=== PATIENT | male | born 1940 | race Caucasian/White ===

== ENCOUNTER → 2017-01-06 | Outpatient (CLI) | payer OTHER ==
[2017-01-06 17:26] LABS: BASOPHILS # (AUTO) 0.01 10*3/UL; BASOPHILS % (AUTO) 0.1 % (0-1); EOSINOPHILS # (AUTO) 0.34 10*3/UL; EOSINOPHILS % (AUTO) 5.1 % (0-8); HEMATOCRIT 44.7 % (42.0-52.0); HEMOGLOBIN 14.6 g/dL (14.0-18.0); MEAN CORPUSCULAR HEMOGLOBIN 31.3 PG (27-31); MEAN CORPUSCULAR HGB CONC 32.7 g/dL (33-37); MEAN CORPUSCULAR VOLUME 95.9 FL (80-90); MEAN PLATELET VOLUME 10.4 FL (7.4-12.2); MONOCYTES # (AUTO) 0.64 10*3/UL (0.3-0.8); MONOCYTES % (AUTO) 9.5 % (5-15); NEUTROPHILS # (AUTO) 5.02 10*3/UL; NEUTROPHILS % (AUTO) 74.8 % (50-80); RED BLOOD COUNT 4.66 10^6/uL (4.70-6.10)
[2017-01-06 17:29] LABS: PLATELET MORPHOLOGY COMMENT NORMAL MORPHOLOGY (NORM); RBC MORPHOLOGY COMMENT NORMAL MORPHOLOGY (NORM); WBC MORPHOLOGY COMMENT NORMAL MORPHOLOGY (NORM)
[2017-01-06 17:35] LABS: CALCIUM 9.3 mg/dL (8.7-10.7); SERUM ALBUMIN 3.9 g/dL (3.5-4.8)
[2017-01-08 10:10] LABS: PSATOTAL 83.6 ng/mL (<=6.5)
[2017-01-09 13:28] LABS: FREE PSA/PSA RATIO SEE COMMENTS ratio (())
== END ==
LOC: MOB LAB 15:23
PROVIDERS: ATTEND Internal Medicine
DX: J44.9 Chronic obstructive pulmonary disease, unspecified (principal); D53.9 Nutritional anemia, unspecified; R64 Cachexia; R97.20 Elevated prostate specific antigen [PSA]
CPT/HCPCS: 36415; 80053; 82607; 84153; 84154; 84443; 85025; 99214; G0463; J3420

== ENCOUNTER 2017-11-18 09:56 | Inpatient (IN) ==
[2017-11-18] MEDS ORDERED: KETOROLAC 15 MG/1 ML VIAL IVP ONE (10:05)
[2017-11-18] MEDS ORDERED: IPRATROPIUM/ALBUTEROL SULFATE 3 ML NEB NEB ONE (10:05)
[2017-11-18] MEDS ORDERED: DEXAMETHASONE PF 10 MG/1 ML VIAL IVP ONE (10:05)
[2017-11-18] MEDS ORDERED: ONDANSETRON 4 MG/2 ML VIAL IVP ONE (10:05)
[2017-11-18] MEDS: Sodium Chloride 0.9% 1,000 ML PRIMARY IV ONE ×2 (10:09→14:07)
--- NOTE | 2017-11-18 10:12 | PDOC ---
Dyspnea HPI - General Chief Complaint: Respiratory Complaint Stated Complaint: TROUBLE BREATHING Date Seen by Provider: 11/18/17 Time Seen by Provider: 10:00 Source: POSITIVE: Patient, EMS Exam Limitations: POSITIVE: No limitations Treatment Prior to Arrival: REPORTS: Oxygen, Albuterol Neb Treatment Nurse's Notes Reviewed & Considered: Yes - History of Present Illness Initial Comments: This is a 77-year-old, well-developed, cachectic, male, complaining of shortness of breath. Patient called for EMS this morning with shortness of breath and difficulty breathing. EMS arrived and found his oxygenation to be 78 -80% on his baseline 3 L oxygen. He received albuterol and his oxygenation began to improve into the upper 80s and low 90s. With transfer from bed to [facility], his oxygen saturation dropped instantaneously into the low 80s. Patient states he began to develop symptoms 3 days ago with cough, shortness of breath, increased secretions, and tactile fevers. Patient denies nausea vomiting or diarrhea, no headache, no sore throat, no hematuria or dysuria. Body Location Affected: REPORTS: Chest Timing: REPORTS: Abrupt, Getting Worse Duration: >24 hours Severity: Severe Quality: REPORTS: "Pain" Initiating Event: REPORTS: Upper Respiratory Illness Context: DENIES: Sleep, Rest, Emotional Upset, Activity, Exertion, Other Exacerbated By: REPORTS: Exertion, Laying Flat, Coughing Associated Symptoms: REPORTS: Fever, Chills, Chest Discomfort, Chest Heaviness, Chest Tightness, Productive Cough, Anxiety Similar Symptoms Previously: Yes Recently seen/treated/hospitalized: No Any Prior Injuries Related to Current Complaint?: No - Patient Home Medications Home Medications: Home Medications Albuterol Sulfate [Ventolin Hfa] 1 - 2 puff INH Q4H #4 puff 05/17/16 Umeclidinium [place] [Incruse Ellipta] 62.5 mcg INH QD #1 inhaler 03/04/17 fluticasone 200 mcg-vilanterol 25 mcg/dose powder for inhalation 1 inh INH QDAY #28 ea 08/21/17 Cyanocobalamin (Vitamin B-12) [B-12 Compliance] 1,000 mcg IM MONTHLY 11/18/17 O2 3 l INH DAILY 11/18/17 - Patient Allergies Allergies/Adverse Reactions: Allergies 3 Allergy/AdvReac Type Severity Reaction Status Date / Time codeine Allergy Intermediate RASH Verified 11/18/17 12:40 nickel [Nickel] Allergy Mild RASH Verified 11/18/17 12:40 Past Medical History - heen HEENT History: Denies History Cardiovascular History: Denies History Respiratory History: COPD, Emphysema, Home Oxygen Use Additional Respiratory History: SPONTANEOUS PNEUMOTHORAX 01/2015 WITH CHEST TUBE PLACEMENT. HAS HAD 3 SPONTANEOUS PNEUMOS Gastrointestinal History: Denies History Genitourinary History: Denies History Endocrine History: Denies History Musculoskeletal History: Denies History Prosthesis or Implant: No Neurological History: Denies History Blood Disorders: Denies History Psychiatric History: Anxiety Disorders History of Sexually Transmitted Diseases: No Cancer History: Lung History of MDRO: No History of Other Communicable Diseases: No Alcohol Use: None In the Past 12 Months, Have Used or Abuse Any Substance: None Previous Surgical History: Yes Type / Date of Surgery: APPY, CHEST TUBE PLACEMENT Anesthesia Reactions: No Malignant Hyperthermia: No Significant Family History: No pertinent family hx ROS - Limitations ROS Limitations: No Limitations Constitution: REPORTS: Chills, Fever Cardiovascular: REPORTS: Chest Pain Respiratory: REPORTS: Cough Productive, Hurts To Breathe, Shortness Of Breath, Wheezing Neurological: REPORTS: Denies Neuro Symptoms Gastrointestinal: REPORTS: Denies GI Symptoms Endocrine: REPORTS: Denies Symptoms Musculoskeletal: REPORTS: Denies MS Symptoms Genitourinary: REPORTS: Denies Symptoms Eyes: REPORTS: Denies Symptoms ENT: REPORTS: Denies Symptoms Skin: REPORTS: Denies Skin Symptoms Lympathic: REPORTS: Denies Lympathic Symptoms Immunologic: POSITIVE: Denies Symptoms Psychiatric: POSITIVE: Denies Psych Symptoms Dyspnea Physical Exam - General Appearance General Appearance: REPORTS: Alert, Cooperative, No Evidence of Trauma, Severe Distress - HEENT HEENT: POSITIVE: Head Inspection Nml, Eyes Inspection Nml, Ears Inspection Nml, Nose Inspection Nml, Oral/Dental Inspect. Nml, Pharynx Inspect. Nml, PERRL, EOMI - Neck Neck: REPORTS: Normal Inspection - Respiratory Respiratory: REPORTS: Respiratory Distress, Fatigue, Wheezes, Rhonchi, Prolonged Expirations, Accessory Muscle Use, Retractions, Decreased Air Movement , Speaks Broken Sentences - Cardiovascular Cardiovascular: REPORTS: Heart Sounds Normal, Strong Pulses, No Murmur, No Gallop, No Friction Rub, No JVD, Tachycardia Peripheral Pulses: Radial (L): 4+ - Abdomen Abdomen: Soft: (All Quadrants), Normal Bowel Sounds: (All Quadrants), Denies Tenderness: (All Quadrants), No Splenomegaly: (All Quadrants), No Hepatomegaly: (All Quadrants), No Guarding: (All Quadrants), No Rebound: (All Quadrants), No Palpable Pulse: (All Quadrants), No Palpabale Mass: (All Quadrants), No Distention: (All Quadrants), No Rigidity: (All Quadrants) - Skin Skin: REPORTS: Intact, Normal For Race, Warm, Dry, No Rash - Extremities Extremity: Non-Tender: (All Extremities), Normal ROM: (All Extremities), Normal Inspection: (All Extremities), Pelvis Stable: (All Extremities) - Neurological / Psychological Neurological: POSITIVE: Oriented X3, automatic print developer Normal As Tested, Motor Normal, Sensation Normal, 5, 6 Dyspnea Progress - Results Reviewed by me Xrays/CTs/US Reviewed by me: Yes Discussed with Radiologist: No Lab Results Reviewed by Me: Yes CBC and BMP: 11/18/17 10:10 11/18/17 10:10 EKG Interpreted/Reviewed By Me:: Yes (Tachycaridia, sinus) EKG Interpretation:: POSITIVE: Abnormal EKG - Patient's Progress Pain Medication Addressed: POSITIVE: Yes Re-Examine Time: 11:22 Status: POSITIVE: Improved MDM / ED Course: Patient was examined, an IV started, blood drawn and sent to the laboratory for studies, EKG and radiographic examinations were obtained. Findings: CBC shows a normal white count. CMP shows potassium of 3.4. Influenza is negative. BNP is elevated at 1400. Chest x-ray, per my interpretation, shows a right upper and middle lobe pneumonia. D-dimer is elevated at 2.24. CT scan shows no PE present, there is noted to be a right upper and middle lobe pneumonia. Assessment: #1 right upper and middle lobe pneumonia. #2 hypoxia. Plan: IV Rocephin and azithromycin are administered here in the emergency room. Patient is being admitted by the hospitalist. Air Movement: POSITIVE: Poor Quality Measure Initiative: CP/AMI: POSITIVE: EKG Quality Measure Initiative: CAP: POSITIVE: Antibiotic(s), CXR or CT - Consult Consult (If Yes, Name of Consulting MD & Time Called): Yes (Dr. Lilly 1120hrs) Consulting MD will see pt:: POSITIVE: [facility] Admit Counseled: POSITIVE: Patient, RE: Lab Results, RE: Radiology Results, RE: DX, RE : Need for F/U Patient Care Time - Estimated PCT Patient Care Time (In Minutes): 30 Vital Signs - Recent Vital Signs Vital Signs: Vital Signs (Last 8 hours) Temp Pulse Pulse Resp BP Pulse Ox 11/18/17 10:56 118 H 24 100 11/18/17 10:55 114 H 26 H 90 11/18/17 10:45 98.1 F 120 H 24 122/94 89 11/18/17 10:32 107 H 18 92 11/18/17 10:31 103 H 18 92 - VS Reviewed Vital Signs Reviewed: Yes Discharge Clinical Impression: Pneumonia Discharge Disposition: Admit to Inpatient Condition: Stable Date Decision to Admit to Inpatient: 11/18/17 Time Decision to Admit to Inpatient: 11:20
[2017-11-18 10:14] LABS: VENOUS PH 7.37 (7.32-7.42)
--- NOTE | 2017-11-18 10:25 | EKG ---
[address] [address] Measurements Intervals [place] Rate: 101 P: 95 AL: 127 QRS: 82 QRSD: 78 T: 73 QT: 338 QTc: 396 Interpretive Statements SINUS TACHYCARDIA POSSIBLE LEFT ATRIAL ENLARGEMENT ABNORMAL RHYTHM ECG Compared to ECG 06/04/2015 09:36:06 Sinus rhythm no longer present Electronically Signed On 11-18-17 17:10:04 [facility] by Hernán Fay [id number]
[2017-11-18 10:29] LABS: BASOPHILS # (AUTO) 0.01 10*3/UL; BASOPHILS % (AUTO) 0.1 % (0-1); EOSINOPHILS # (AUTO) 0.12 10*3/UL; EOSINOPHILS % (AUTO) 1.3 % (0-8); Hematocrit [HCT] 41.9 % (42.0-52.0); LYMPHOCYTES # (AUTO) 1.14 10*3/uL; MEAN CORPUSCULAR HEMOGLOBIN 31.3 PG (27-31); MEAN CORPUSCULAR HGB CONC 33.4 g/dL (33-37); MEAN CORPUSCULAR VOLUME 93.5 FL (80-90); MEAN PLATELET VOLUME 10.8 FL (7.4-12.2); MONOCYTES # (AUTO) 0.74 10*3/UL (0.3-0.8); MONOCYTES % (AUTO) 7.8 % (5-15); NEUTROPHILS # (AUTO) 7.44 10*3/UL; NEUTROPHILS % (AUTO) 78.6 % (50-80); RED BLOOD COUNT 4.48 10^6/uL (4.70-6.10)
[2017-11-18 10:40] LABS: BLOOD UREA NITROGEN 21 mg/dL (7-22); SERUM ALBUMIN 3.7 g/dL (3.5-4.8)
[2017-11-18 10:42] LABS: PLATELET MORPHOLOGY COMMENT NORMAL MORPHOLOGY (NORM); RBC MORPHOLOGY COMMENT NORMAL MORPHOLOGY (NORM); WBC MORPHOLOGY COMMENT NORMAL MORPHOLOGY (NORM)
[2017-11-18] MEDS ORDERED: ALBUTEROL SULFATE 5 MG/ML-20 ML BOTTLE NEB ONE (10:46)
[2017-11-18] MEDS ORDERED: SODIUM CL 0.9% FOR INH 3 ML NEB NEB ONE ×2 (10:53→10:57)
[2017-11-18] MEDS ORDERED: FUROSEMIDE 10 MG/1 ML - 4 ML IVP ONE (11:18)
[2017-11-18] MEDS ORDERED: cefTRIAXone Inj 2 GM in Sodium Chloride 0.9% 100 ML IV ONE (11:18)
--- NOTE | 2017-11-18 12:19 | DI ---
CT CTA Chest Non-Coronary [facility],11/18/2017 10:40 AM: Clinical History: Shortness of breath with elevated d-dimer. Previous Exam: September 11, 2015 Findings: Multiple helically acquired CT images are obtained through the chest following intravenous administra tion of contrast, and demonstrate a small right pleural effusion. There is airspace disease within th e right upper lobe and within the right lower lobe. This was seen on the prior exam as well to a less er degree. There are diffuse emphysematous changes noted bilaterally. The pulmonary arteries demonstrate no evidence of filling defect or truncation. Multiple coronary art radha calcifications are seen. The upper abdomen is unremarkable. There are a few hypodensities noted within the liver not well evaluated on this exam. These are not w ell evaluated on this exam. Impression: 1. No evidence of pulmonary embolism. 2. Multifocal pneumonia. 3. Diffuse COPD. 4. Hepatic hypodensities. These were also seen on the prior exam, but are not well evaluated. Conside r [address] for further evaluation.
--- NOTE | 2017-11-18 12:19 | DI ---
XR CXR 2VW PA/LAT,11/18/2017 10:05 AM: Clinical History: Shortness of breath and cough. Previous Exam: None at this facility. Findings: PA and lateral views of the chest are obtained, and demonstrate diffuse increased lung volumes bilate rally. There is blunting of the right costophrenic angle. There is airspace disease involving the right upper lobe and within the right lower lobe. There is a very small right pleural effusion. The cardiomediastinum and bony thorax are unremarkable. Impression: Right upper lobe and right lower lobe pneumonia.
[2017-11-18] MEDS ORDERED: HEPARIN 5000 UNIT/1 ML SUBCUT SCH (12:39)
[2017-11-18] MEDS ORDERED: ACETAMINOPHEN 500 MG TABLET PO PRN ×2 (12:39→15:23)
[2017-11-18] MEDS ORDERED: LIDOCAINE W/ SODIUM BICARB 0.5 ML SYR SUBD PRN ×3 (12:39→19:30)
[2017-11-18] MEDS ORDERED: ONDANSETRON 4 MG/2 ML VIAL IVP PRN ×3 (12:39→19:30)
[2017-11-18] MEDS ORDERED: NORMAL SALINE 10 ML SYRINGE FLUSH IVP PRN ×3 (12:39→19:30)
[2017-11-18] MEDS ORDERED: ALBUTEROL SULFATE 2.5 MG/3 ML NEB PRN ×2 (12:39→15:23)
[2017-11-18] MEDS ORDERED: IPRATROPIUM/ALBUTEROL SULFATE 3 ML NEB NEB SCH ×2 (15:00→19:00)
--- NOTE | 2017-11-18 15:10 | EKG ---
[address] [place] [address] Measurements Intervals [place] Rate: 154 P: [place]: 0 QRS: 84 QRSD: 106 T: 141 QT: 304 QTc: 391 Interpretive Statements ATRIAL FLUTTER/TACHYCARDIA WITH RAPID VENTRICULAR RESPONSE ST DEPRESSION, CONSIDER SUBENDOCARDIAL INJURY Compared to ECG 11/18/2017 10:27:33 ST (T wave) deviation now present Sinus tachycardia no longer present Electronically Signed On 11-18-17 17:08:07 [facility] by Hernán Fay [id number]
[2017-11-18] MEDS ORDERED: DILTIAZEM 5 MG/ML - 5 ML IV ONE (15:23)
[2017-11-18] MEDS ORDERED: Diltiazem Drip 125 MG in Sodium Chloride 0.9% 100 ML IV SCH (15:30)
[2017-11-18] MEDS ORDERED: LIDOCAINE HCL 2 % 10 ML JELLY URO-JECT TOPICAL PRN ×2 (16:05→19:30)
--- NOTE | 2017-11-18 16:29 | PDOC ---
HPI - History of Present Illness Date of Service: 11/18/17 Time of Service: 16:20 Chief Complaint: Shortness of breath and cough History of Present Illness: This is a very pleasant 77-year-old male who has COPD, amongst other medical issues. He has been losing a significant amount of weight, upwards of 25 pounds in the last 6 months, and he noticed this morning that his oxygen saturation was 70% at home. He told his to call the ambulance for evaluation. He felt that he had had shortness of breath and cough. He was afebrile here, but was intermittently hypotensive and tachycardic with atrial flutter with a rapid ventricular response and also was found to have a pneumonia with chest x-ray and CT scan of the chest. He didn't try anything before coming in for evaluation is just been feeling much more week he states. He notes that when he walks to his couch to sit down he actually at one point passed out and fell face forward and do his couch. He is on oxygen, 3 L at home. He quit smoking over 3 and appears ago. His vaccine status is not known. Given his significant weight loss, I did do a PSA which is elevated at 66. He states he's had negative colonoscopies in the past. Fluids and antibiotics haven't helped the patient to feel a little better and his oxygen on place has also helped him feel better here today. Past Medical History Medical History: 1. COPD/emphysema with a 3-4 L oxygen requirement. 2. History of pneumothorax and required a chest tube. 3. Loss of weight. 4. Vitamin B12 deficiency Surgical History: History of previous appendectomy Family History: Reviewed an Not Pertinent Pertinent Family History: No Family history of heart disease. Past Social History: . Has several children unfortunately the patient states that a couple have asked she passed on. He quit smoking over 3-1/2 years ago, no alcohol. Lives with his here in [place]. Tobacco Use: Former Smoker In the Past 12 Months, Have Used or Abuse Any of the Following Substance: None Alcohol Use: None Medication / Allergies Home Medications: Home Medications 3 Medication Instructions Recorded Confirmed Type Albuterol Sulfate [Ventolin Hfa] 1 - 2 puff INH Q4H #4 puff 05/17/16 11/18/17 Rx Umeclidinium [place] [Incruse 62.5 mcg INH QD #1 inhaler 03/04/17 11/18/17 Rx Ellipta] fluticasone 200 mcg-vilanterol 25 1 inh INH QDAY #28 ea 08/21/17 11/18/17 Rx mcg/dose powder for inhalation O2 3 l INH DAILY 11/18/17 11/18/17 History RX: Cyanocobalamin (Vitamin B-12) 1,000 mcg IM MONTHLY 11/18/17 11/18/17 History [B-12 Compliance] Allergies/Adverse Reactions: Allergies 3 Allergy/AdvReac Type Severity Reaction Status Date / Time codeine Allergy Intermediate RASH Verified 11/18/17 12:40 nickel [Nickel] Allergy Mild RASH Verified 11/18/17 12:40 Review of Systems - Review of Systems All Systems: Reviewed & No Additional Complaints Except as Stated (I did a 12 point review systems and is negative other than that discussed in history present illness and that noted below.) - Constitutional Constitutional: REPORTS: General Health Poor, Weight Loss, Weakness - Respiratory Respiratory: REPORTS: Cough - Gastrointestinal Gastrointestinal / Abdominal: REPORTS: Other (Does get choking sensation in his lower neck/upper chest sometimes with solids.) Exam - Vitals Vital Signs: Vital Signs Temperature 98.8 F Temperature Source Temporal Artery Scan Pulse Rate [Apical] 112 Pulse Rate 149 Respiratory Rate 20 Blood Pressure [Right Arm] 94/68 Blood Pressure 93/63 Pulse Ox 94 Oxygen Flow Rate 2.5 Oxygen Delivery Method Nasal Cannula Height 6 ft Weight 84 lb 9.6 oz - General General Appearance: No Acute Distress, Cooperative - Head Head Exam: Atraumatic Additional Head Exam Details: Significant temporal wasting and signs of pulmonary cachexia. - Eye Eye Exam: POSITIVE: No Scleral Icterus - ENT ENT Exam: POSITIVE: Mucous Membranes Dry - Neck Neck Exam: No Tenderness, No Lymphadenopathy, No Thyromegaly Additional Neck Exam Details: Significant prominent anterior scalene musculature. - Respiratory Respiratory Exam: POSITIVE: Breathing Non Labored, Rales, Rhonci, Dull to Percussion - Cardiovascular Cardiovascular Exam: POSITIVE: No Murmur, No Clicks, No Gallops, No Rubs, Irregular Rhythm, Tachycardia, No JVD - GI/Abdominal GI/Abdominal Exam: POSITIVE: Normal Bowel Sounds, Non Tender, Non Distended, Soft - Rectal Rectal Exam: POSITIVE: Normal Inspection, Normal Rectal Tone, Prostate Enlargement (Hard, large prostate. No blood on glove.) - External Exam: POSITIVE: Deferred Exam: POSITIVE: Deferred - Extremities Extremities Exam: POSITIVE: No Edema Present, No Cyanosis Present, Clubbing Present - Back Back Exam: POSITIVE: No CVA Tenderness - Neurological Neurological Exam: POSITIVE: Alert, Oriented x 3, No Facial Droop, Speech Intact / Clear, Moves All Extremities Equally - Integumentary Integumentary Exam: POSITIVE: Normal Color, Warm, Dry, Intact - Central Line Examination Central Line Present on Admission: No Results - Labs CBC and BMP: 11/18/17 10:10 11/18/17 10:10 Additional Lab Results: Laboratory Results 11/18/17 11/18/17 11/18/17 Range/Units 10:08 10:10 10:10 WBC 9.46 (4.8-10.8) 10^3/uL RBC 4.48 L (4.70-6.10) 10^6/uL Hgb 14.0 (14.0-18.0) g/dL Hct 41.9 L (42.0-52.0) % MCV 93.5 H (80-90) FL MCH 31.3 H (27-31) PG MCHC 33.4 (33-37) g/dL RDW Std Deviation 46.2 (39-50) fL RDW Coeff of [place] 13.6 (11.5-14.5) % Plt Count 169 (140-350) 10*3/uL MPV 10.8 (7.4-12.2) FL Immature Gran % (Auto) 0.1 (0-5) % Neut % (Auto) 78.6 (50-80) % Lymph % (Auto) 12.1 (10-50) % [place] % (Auto) 7.8 (5-15) % Eos % (Auto) 1.3 (0-8) % Baso % (Auto) 0.1 (0-1) % Immature Gran # (Auto) 0.01 10*3/UL Neut # (Auto) 7.44 10*3/UL Lymph # (Auto) 1.14 10*3/uL [place] # (Auto) 0.74 (0.3-0.8) 10*3/UL Eos # (Auto) 0.12 10*3/UL Baso # (Auto) 0.01 10*3/UL WBC Morphology Comment Normal morphology (NORM) Plt Morphology Comment Normal morphology (NORM) RBC Morph Comment Normal morphology (NORM) PT (9.7-11.4) secs INR (0.00-5.90) N/A D-Dimer 2.28 H (0.00-0.59) mg/L VBG pH 7.37 (7.32-7.42) VBG pCO2 39 L (45-55) mmHg VBG HCO3 23 (22-26) mmol/L VBG Base Excess -3 L (-2-2) MMOL/L Sodium (135-145) meq/L Potassium (3.8-5.2) meq/L Chloride (98-112) meq/L Carbon Dioxide (23-33) meq/L Anion Gap (5-20) BUN (7-22) mg/dL Creatinine (0.70-1.50) mg/dL BUN/Creatinine Ratio (6-20) Glucose (78-110) mg/dL Calculated Osmolality (267-292) mOsm/kg Lactic Acid (0.70-2.10) MMOL/L Calcium (8.7-10.7) mg/dL Magnesium (1.6-2.4) mg/dL Total Bilirubin (0.3-1.2) mg/dL AST (21-57) IU/L ALT (21-72) IU/L Alkaline Phosphatase (38-126) IU/L CK-MB (CK-2) (0.00-5.00) NG/ML Troponin I Handheld (< 0.040) ng/mL Troponin I (< 0.040) ng/mL C-Reactive Protein (0.0-0.9) mg/dL NT-Pro-B Natriuret Pep (0-450) PG/ML Total Protein (6.1-8.0) g/dL Albumin (3.5-4.8) g/dL Globulin (2.50-4.10) g/dL Albumin/Globulin Ratio (1.3-2.0) mg/g PSA Screen (0.006-4.00) ng/ml 11/18/17 11/18/17 11/18/17 Range/Units 10:10 10:10 10:10 WBC (4.8-10.8) 10^3/uL RBC (4.70-6.10) 10^6/uL Hgb (14.0-18.0) g/dL Hct (42.0-52.0) % MCV (80-90) FL MCH (27-31) PG MCHC (33-37) g/dL RDW Std Deviation (39-50) fL RDW Coeff of [place] (11.5-14.5) % Plt Count (140-350) 10*3/uL MPV (7.4-12.2) FL Immature Gran % (Auto) (0-5) % Neut % (Auto) (50-80) % Lymph % (Auto) (10-50) % [place] % (Auto) (5-15) % Eos % (Auto) (0-8) % Baso % (Auto) (0-1) % Immature Gran # (Auto) 10*3/UL Neut # (Auto) 10*3/UL Lymph # (Auto) 10*3/uL [place] # (Auto) (0.3-0.8) 10*3/UL Eos # (Auto) 10*3/UL Baso # (Auto) 10*3/UL WBC Morphology Comment (NORM) Plt Morphology Comment (NORM) RBC Morph Comment (NORM) PT (9.7-11.4) secs INR (0.00-5.90) N/A D-Dimer (0.00-0.59) mg/L VBG pH (7.32-7.42) VBG pCO2 (45-55) mmHg VBG HCO3 (22-26) mmol/L VBG Base Excess (-2-2) MMOL/L Sodium 139 (135-145) meq/L Potassium 3.4 L (3.8-5.2) meq/L Chloride 105 (98-112) meq/L Carbon Dioxide 20 L (23-33) meq/L Anion Gap 14 (5-20) BUN 21 (7-22) mg/dL Creatinine 1.0 (0.70-1.50) mg/dL BUN/Creatinine Ratio 21.00 H (6-20) Glucose 120 H (78-110) mg/dL Calculated Osmolality 291.0 (267-292) mOsm/kg Lactic Acid 2.3 H (0.70-2.10) MMOL/L Calcium 8.8 (8.7-10.7) mg/dL Magnesium 2.3 (1.6-2.4) mg/dL Total Bilirubin 0.6 (0.3-1.2) mg/dL AST 28 (21-57) IU/L ALT 37 (21-72) IU/L Alkaline Phosphatase 86 (38-126) IU/L CK-MB (CK-2) 1.21 (0.00-5.00) NG/ML Troponin I Handheld (< 0.040) ng/mL Troponin I < 0.012 (< 0.040) ng/mL C-Reactive Protein 19.0 H (0.0-0.9) mg/dL NT-Pro-B Natriuret Pep 1470 H (0-450) PG/ML Total Protein 6.7 (6.1-8.0) g/dL Albumin 3.7 (3.5-4.8) g/dL Globulin 3.0 (2.50-4.10) g/dL Albumin/Globulin Ratio 1.20 L (1.3-2.0) mg/g PSA Screen (0.006-4.00) ng/ml 11/18/17 11/18/17 11/18/17 Range/Units 10:22 10:30 14:47 WBC (4.8-10.8) 10^3/uL RBC (4.70-6.10) 10^6/uL Hgb (14.0-18.0) g/dL Hct (42.0-52.0) % MCV (80-90) FL MCH (27-31) PG MCHC (33-37) g/dL RDW Std Deviation (39-50) fL RDW Coeff of [place] (11.5-14.5) % Plt Count (140-350) 10*3/uL MPV (7.4-12.2) FL Immature Gran % (Auto) (0-5) % Neut % (Auto) (50-80) % Lymph % (Auto) (10-50) % [place] % (Auto) (5-15) % Eos % (Auto) (0-8) % Baso % (Auto) (0-1) % Immature Gran # (Auto) 10*3/UL Neut # (Auto) 10*3/UL Lymph # (Auto) 10*3/uL [place] # (Auto) (0.3-0.8) 10*3/UL Eos # (Auto) 10*3/UL Baso # (Auto) 10*3/UL WBC Morphology Comment (NORM) Plt Morphology Comment (NORM) RBC Morph Comment (NORM) PT 10.2 (9.7-11.4) secs INR 0.96 (0.00-5.90) N/A D-Dimer (0.00-0.59) mg/L VBG pH (7.32-7.42) VBG pCO2 (45-55) mmHg VBG HCO3 (22-26) mmol/L VBG Base Excess (-2-2) MMOL/L Sodium (135-145) meq/L Potassium (3.8-5.2) meq/L Chloride (98-112) meq/L Carbon Dioxide (23-33) meq/L Anion Gap (5-20) BUN (7-22) mg/dL Creatinine (0.70-1.50) mg/dL BUN/Creatinine Ratio (6-20) Glucose (78-110) mg/dL Calculated Osmolality (267-292) mOsm/kg Lactic Acid (0.70-2.10) MMOL/L Calcium (8.7-10.7) mg/dL Magnesium (1.6-2.4) mg/dL Total Bilirubin (0.3-1.2) mg/dL AST (21-57) IU/L ALT (21-72) IU/L Alkaline Phosphatase (38-126) IU/L CK-MB (CK-2) (0.00-5.00) NG/ML Troponin I Handheld 0.000 (< 0.040) ng/mL Troponin I (< 0.040) ng/mL C-Reactive Protein (0.0-0.9) mg/dL NT-Pro-B Natriuret Pep (0-450) PG/ML Total Protein (6.1-8.0) g/dL Albumin (3.5-4.8) g/dL Globulin (2.50-4.10) g/dL Albumin/Globulin Ratio (1.3-2.0) mg/g PSA Screen 66.2 H (0.006-4.00) ng/ml - EKG Data -: EKG Interpreted by Tn Rate: Tachycardia - EKG Data EKG Interpretation: Other (Atrial flutter with rapid ventricular response.) - Imaging Status: Image Reviewed by Me (Chest x-ray appears positive for right middle lobe pneumonia. CT scan of the chest shows pneumonia, most of it right side and also some pleural thickening, the patient has what appears to be liver lesions as well.) Assessment and Plan - Patient Problems (1) Pneumonia Current Visit: Yes Status: Acute Code(s): J18.9 - Pneumonia, unspecified organism Qualifiers: Pneumonia type: due to unspecified organism Laterality: right Lung location: middle lobe of lung Qualified Code(s): J18.1 - Lobar pneumonia, unspecified organism (2) Atrial flutter with rapid ventricular response Current Visit: Yes Status: Acute Code(s): I48.92 - Unspecified atrial flutter (3) Hypotension Current Visit: Yes Status: Acute Code(s): I95.9 - Hypotension, unspecified Qualifiers: Hypotension type: other hypotension type Qualified Code(s): I95.89 - Other hypotension (4) Loss of weight Current Visit: Yes Status: Acute Code(s): R63.4 - Abnormal weight loss (5) Elevated PSA Current Visit: Yes Status: Acute Code(s): R97.20 - Elevated prostate specific antigen [PSA] (6) COPD (chronic obstructive pulmonary disease) Current Visit: Yes Status: Acute Code(s): J44.9 - Chronic obstructive pulmonary disease, unspecified Qualifiers: COPD type: emphysema Emphysema type: panlobular Qualified Code(s): J43.1 - Panlobular emphysema (7) Hypokalemia Current Visit: Yes Status: Acute Code(s): E87.6 - Hypokalemia (8) Severe protein-calorie malnutrition Current Visit: Yes Status: Acute Code(s): E43 - Unspecified severe protein- calorie malnutrition - Assessment / Plan Additional Assessment/Plan Details: Admit patient. Antibiotics will be given IV rocephin and zithromax I will write for some breathing therapies including nebulized therapies if necessary. Oxygen as necessary to keep saturations greater than 91%. Respiratory therapy to evaluate. Vitamin C by mouth. We'll check a urinary antigen for strep pneumoniae. vaccine status reviewed states he had the flu shot, not sure about Pneumovax PSI score is 118 . Class IV pneumonia CURB-65 is 2 smoking status negative Repeat labs in a.m. CODE STATUS discussed, DO NOT RESUSITATE Blood cultures are pending. Telemetry monitoring for now. Given the severity of this pneumonia, hypotension, he will likely need at least a 7 day course of antibiotics. IV fluids. Bolus as necessary to keep systolics above 90. Cardizem drip for atrial flutter to try and control rate, and DVT prevention with Lovenox at full strength dose with atrial fibrillation. We will have to decide on a blood thinner given this atrial flutter appearance. He states that he often will check his heart rate at home and he is in the 100s I suspect this is not a new heart rhythm for him. Overall, my concern is that the patient is very nutritionally compromised, may not have enough physical reserve to fight off pneumonia, and likely has a cancer or malignancy underlying it. With elevated PSA, I suspect prostate cancer. The liver lesions are likely metastatic and we'll do a 3 phase liver scan to look at this further. I discussed this with the patient and his , and I like to see how the patient does over the next 24-48 hours before we make any past decisions. But I suspect he is in the last 6 months of life. If at a minimum this is all related to pulmonary cachexia, that would preclude that he has about 6 months to live. The patient was not in disagreement with this as he thought maybe a year. Plan above discussed with patient and patient agreed
[2017-11-18] MEDS ORDERED: Sodium Chloride 0.9% 1,000 ML ONE (17:22)
[2017-11-18] MEDS ORDERED: Sodium Chloride 0.9% 1,000 ML PRIMARY IV SCH (17:30)
[2017-11-18] MEDS ORDERED: DILTIAZEM HCL CD 120 MG CAP PO ONE (19:30)
[2017-11-18] MEDS: Sodium Chloride 0.9% 1,000 ML PRIMARY IV SCH (19:48)
[2017-11-18] MEDS: IPRATROPIUM/ALBUTEROL SULFATE 3 ML NEB NEB SCH (20:18)
[2017-11-18] MEDS ORDERED: ENOXAPARIN SODIUM 40 MG/0.4 ML SYRINGE SUBCUT SCH (21:00)
[2017-11-18] MEDS ORDERED: METOPROLOL TARTRATE 5 MG/5 ML VIAL IVP ONE (21:27)
[2017-11-18] MEDS: ENOXAPARIN SODIUM 40 MG/0.4 ML SYRINGE SUBCUT SCH (21:48)
[2017-11-18] MEDS ORDERED: Sodium Chloride 0.9% 1,000 ML PRIMARY IV ONE (22:10)
[2017-11-19] MEDS: ACETAMINOPHEN 500 MG TABLET PO PRN ×3 (00:13→19:47)
[2017-11-19] MEDS: ALBUTEROL SULFATE 2.5 MG/3 ML NEB PRN (01:13)
[2017-11-19] MEDS: Sodium Chloride 0.9% 1,000 ML PRIMARY IV SCH ×3 (03:07→22:25)
[2017-11-19 05:37] LABS: BASOPHILS # (AUTO) 0 10*3/UL; BASOPHILS % (AUTO) 0 % (0-1); EOSINOPHILS # (AUTO) 0 10*3/UL; EOSINOPHILS % (AUTO) 0 % (0-8); Hematocrit [HCT] 33.2 % (42.0-52.0); Hemoglobin [HGB] 10.9 g/dL (14.0-18.0); LYMPHOCYTES # (AUTO) 0.66 10*3/uL; MEAN CORPUSCULAR HGB CONC 32.8 g/dL (33-37); MEAN CORPUSCULAR VOLUME 94.3 FL (80-90); MEAN PLATELET VOLUME 10.4 FL (7.4-12.2); MONOCYTES % (AUTO) 5.3 % (5-15); NEUTROPHILS # (AUTO) 8.29 10*3/UL; NEUTROPHILS % (AUTO) 87.4 % (50-80); RED BLOOD COUNT 3.52 10^6/uL (4.70-6.10)
[2017-11-19 05:55] LABS: BLOOD UREA NITROGEN 20 mg/dL (7-22); BUN/CREATININE RATIO 22.22 (6-20)
[2017-11-19 05:59] LABS: PLATELET MORPHOLOGY COMMENT NORMAL MORPHOLOGY (NORM); RBC MORPHOLOGY COMMENT NORMAL MORPHOLOGY (NORM); WBC MORPHOLOGY COMMENT NORMAL MORPHOLOGY (NORM)
[2017-11-19] MEDS: IPRATROPIUM/ALBUTEROL SULFATE 3 ML NEB NEB SCH ×4 (06:52→19:37)
[2017-11-19] MEDS ORDERED: IPRATROPIUM/ALBUTEROL SULFATE 3 ML NEB NEB SCH (07:00)
[2017-11-19] MEDS: ASCORBIC ACID 500 MG TABLET PO SCH (08:12)
[2017-11-19] MEDS: ENOXAPARIN SODIUM 40 MG/0.4 ML SYRINGE SUBCUT SCH ×2 (08:12→20:06)
[2017-11-19] MEDS: DILTIAZEM HCL CD 120 MG CAP PO SCH (08:13)
[2017-11-19] MEDS ORDERED: ASCORBIC ACID 500 MG TABLET PO SCH ×2 (09:00)
[2017-11-19] MEDS ORDERED: cefTRIAXone Inj 2 GM in Sodium Chloride 0.9% 100 ML IV SCH ×6 (11:30)
[2017-11-19] MEDS: cefTRIAXone Inj 2 GM in Sodium Chloride 0.9% 100 ML IV SCH (12:24)
--- NOTE | 2017-11-19 12:58 | PTI REPORT ---
Thank you for the referral of Onel Clemons. He was seen on 11/19/17 for an inpatient evaluation secondary to weakness and pneumonia. SUBJECTIVE: The patient is a 77-year-old male. The patient reports he was at home and was having difficulty getting out of his chair and was unable to, even with assistance. The patient was brought via ambulance to the emergency room where he was admitted with a diagnosis of pneumonia. The patient reports he has lost approximately 9-10 pounds over the last three months and understands that he is malnourished as well as extremely weak. He also states that he has a past medical history of COPD. He states he used to be a smoker, but no longer smokes , but does have difficulty breathing. PAST MEDICAL HISTORY: Past medical history can be found in the patient's medical record. OBJECTIVE FINDINGS: Pain: The patient denies having too much pain, but was unable to rate anything on the verbal analog scale (0=no pain, 10=worst pain). Bed mobility: The patient was able to perform bed mobility from supine to edge of bed with min assist due to generalized weakness. Oxygen: It was observed that the patient was on 4 liters of oxygen via nasal cannula and had a compensatory respiration utilizing the accessory muscles and also had a non productive cough. Balance: The patient is able to sit edge of bed unsupported once assisted to that position. Standing balance at best is fair, even with use of the walker due to weakness. Transfers: The patient is able to perform sit to stand transfers with verbal cues for proper hand placement. Ambulation: The patient is able to ambulate 5 feet within his room with walker, gait belt, contact guard assistance as well as verbal cues for proper use of the walker and proper breathing techniques with the use of his nasal cannula. Range of motion/Strength: Active range of motion of bilateral upper and lower extremities are within functional limits with strength at best at 3+/5 within his available range. Endurance: The patient demonstrates increased shortness of breath with very little physical exertion. ASSESSMENT: Problem List: Decreased strength Decreased balance Decreased endurance Generalized weakness Physical Therapy Goals: To be met by discharge from inpatient: Patient will be able to ambulate up to 100 feet for household ambulation for return to home. Patient will increase strength to at least 4-/5 for assistance with independence with transfers and bed mobility. Patient will be able to perform all transfers and bed mobility independently. TREATMENT PLAN: Patient will be seen B.I.D during the week and one time per day over the weekend as an inpatient to address the above goals and objectives. INITIAL TREATMENT: Treatment today consisted of the initial evaluation. The patient was issued a front wheeled walker [facility] at this [facility]. The patient was able to perform bed mobility from supine to edge of bed with min assist. The patient was able to ambulate approximately 5 feet within his room with walker, gait belt, contact guard assistance, and oxygen via nasal cannula. The patient performed unsupported seated activities at edge of bed x5 minutes as well as sit to stand transfers with verbal cues needed for proper hand placement. Following treatment, the patient's nurse was notified about the complaints of chest pain and difficulty breathing while performing these activities. ALEJANDRO
--- NOTE | 2017-11-19 13:24 | DI ---
CT Abdomen WWO Contrast,11/18/2017 3:23 PM: Clinical History: Liver lesions. Previous Exam: CTA chest performed November 18, 2017 Findings: Multiple helically acquired CT images are obtained through the abdomen following a [address] p rotocol after intravenous administration of 65 cc of Isovue 300. There is a small right pleural effusion. There is subsegmental atelectasis in the lung bases. Emphysematous changes are noted in the lung bases. Coronary artery calcifications are seen. The largest of the hepatic hypodensities is seen anteriorly, and measures 7 Hounsfield units. This ma ss measures 15 mm in diameter. There are multiple other subcentimeter hypodensities which are not well evaluated, but demonstrate no evidence of enhancement of any of these lesions. The spleen, adrenals and kidneys are unremarkable. The upper abdomen is unremarkable. Peripheral vascular calcifications are seen. The gallbladder is unremarkable. There are some left parapelvic renal cysts which are separate from t he renal collecting system. Impression: Multiple hepatic lesions. Those that are large enough to measure the criteria of simple cyst. The rem ainder are smaller than 1 cm, and too small to characterize, but are likely also simple cysts. Small right pleural effusion.
--- NOTE | 2017-11-19 15:36 | PDOC(PROG) ---
Date and Time of Service: 11/19/2017, 1532 Interval History: no chest pain today, no nausea or vomiting. states he feels better. shortness of breath okay today. Objective : Data - Labs CBC and BMP: 11/19/17 04:13 11/19/17 04:13 Objective : Exam - General General Appearance: No Acute Distress, Cooperative Additional General Exam Details: Vital Signs - Last Taken Temperature 98.9 F 11/19/17 13:57 Pulse Rate 90 11/19/17 14:36 Respiratory Rate 20 11/19/17 14:36 Blood Pressure 103/75 11/19/17 13:57 Pulse Ox 99 11/19/17 15:00 - Eye Eye Exam: No Scleral Icterus - ENT ENT Exam: Mucous Membranes Moist - Respiratory Respiratory Exam: Breathing Non Labored, Decreased Breath Sounds, Rales, Rhonci - Cardiovascular Cardiovascular Exam: RRR, No Murmur, No Clicks, No Gallops, No Rubs, No JVD - GI/Abdominal GI/Abdominal Exam: Normal Bowel Sounds, Non Distended, Soft Additional GI/Abdominal Exam Details: some tenderness with palpation - Extremities Extremities Exam: No Edema Present, No Cyanosis Present, Clubbing Present - Neurological Neurological Exam: Alert, Oriented x 3, No Facial Droop, Speech Intact / Clear Assessment and Plan - Patient Problems (1) Pneumonia Current Visit: Yes Status: Acute Code(s): J18.9 - Pneumonia, unspecified organism Qualifiers: Pneumonia type: due to unspecified organism Laterality: right Lung location: middle lobe of lung Qualified Code(s): J18.1 - Lobar pneumonia, unspecified organism (2) Atrial flutter with rapid ventricular response Current Visit: Yes Status: Acute Code(s): I48.92 - Unspecified atrial flutter (3) Hypotension Current Visit: Yes Status: Acute Code(s): I95.9 - Hypotension, unspecified Qualifiers: Hypotension type: other hypotension type Qualified Code(s): I95.89 - Other hypotension (4) Loss of weight Current Visit: Yes Status: Acute Code(s): R63.4 - Abnormal weight loss (5) Elevated PSA Current Visit: Yes Status: Acute Code(s): R97.20 - Elevated prostate specific antigen [PSA] (6) COPD (chronic obstructive pulmonary disease) Current Visit: Yes Status: Acute Code(s): J44.9 - Chronic obstructive pulmonary disease, unspecified Qualifiers: COPD type: emphysema Emphysema type: panlobular Qualified Code(s): J43.1 - Panlobular emphysema (7) Hypokalemia Current Visit: Yes Status: Acute Code(s): E87.6 - Hypokalemia (8) Severe protein-calorie malnutrition Current Visit: Yes Status: Acute Code(s): E43 - Unspecified severe protein- calorie malnutrition - Assessment / Plan Additional Assessment/Plan Details: continue antibiotics, no PO antibiotics today, day #2 will reduce vitals frequency I reviewed the CT scan with radiology. There are several lesions, but radiology feels that these are benign. This is in regards to the liver lesions. I still suspect strongly that the patient has metastatic prostate cancer. We reviewed the bones on CT scan a don't see anything that lights up or looks metastatic on his CT scan, but we will go ahead and do a nuclear medicine bone scan to look for metastatic disease. His prostate is quite hard on exam, firm, and very large and with a PSA at that level and given the patient 's age it is likely, clinically likely, that this is prostate cancer. Strongly recommended consideration for the hospice program for this patient. Even if he does not have metastatic prostate cancer, based on his loss of weight , COPD, he has pulmonary cachexia and is likely in the last 6 months of life. The patient would be interested in this. His daughter and his want to think about it and will discuss at some point. Check labs tomorrow.
[2017-11-19] MEDS ORDERED: POTASSIUM CHLORIDE 20 MEQ TAB PO ONE (15:38)
--- NOTE | 2017-11-19 16:22 | PT.PROG ---
Progress Note Progress Note: Patient reported that he is very tired and not feeling up to therapy this afternoon.
--- NOTE | 2017-11-19 20:51 | DI ---
XR L-SPINE 2-3 VW,11/19/2017 5:55 PM: Clinical History: Low back pain for one month. Previous Exam: None at this facility. Findings: AP and lateral views of the lumbar spine are obtained, and demonstrate anatomic alignment without fra ctures. There is mild diffuse osteopenia. A nonobstructive bowel gas pattern is seen. Overlying EKG leads are seen. No pathologic calcification s are seen. There is mild anterior wedging and some sclerosis of the superior endplate of the L2 vertebral body. Impression: Mild compression deformity of the superior endplate of the L2 lumbar vertebral body.
[2017-11-20] MEDS: ALBUTEROL SULFATE 2.5 MG/3 ML NEB PRN ×3 (02:00→17:20)
[2017-11-20] MEDS: ACETAMINOPHEN 500 MG TABLET PO PRN ×2 (04:24→10:16)
[2017-11-20 05:39] LABS: BASOPHILS # (AUTO) 0 10*3/UL; BASOPHILS % (AUTO) 0 % (0-1); EOSINOPHILS # (AUTO) 0.12 10*3/UL; EOSINOPHILS % (AUTO) 1.6 % (0-8); Hemoglobin [HGB] 10.5 g/dL (14.0-18.0); LYMPHOCYTES # (AUTO) 0.72 10*3/uL; MEAN CORPUSCULAR HEMOGLOBIN 30.3 PG (27-31); MEAN CORPUSCULAR HGB CONC 31.8 g/dL (33-37); MEAN CORPUSCULAR VOLUME 95.4 FL (80-90); MEAN PLATELET VOLUME 10.5 FL (7.4-12.2); MONOCYTES # (AUTO) 0.57 10*3/UL (0.3-0.8); MONOCYTES % (AUTO) 7.4 % (5-15); NEUTROPHILS # (AUTO) 6.23 10*3/UL; NEUTROPHILS % (AUTO) 80.8 % (50-80); RED BLOOD COUNT 3.46 10^6/uL (4.70-6.10)
[2017-11-20] MEDS: Sodium Chloride 0.9% 1,000 ML PRIMARY IV SCH ×3 (05:50→21:10)
[2017-11-20 05:51] LABS: PLATELET MORPHOLOGY COMMENT NORMAL MORPHOLOGY (NORM); RBC MORPHOLOGY COMMENT NORMAL MORPHOLOGY (NORM); WBC MORPHOLOGY COMMENT NORMAL MORPHOLOGY (NORM)
[2017-11-20] MEDS: IPRATROPIUM/ALBUTEROL SULFATE 3 ML NEB NEB SCH ×4 (06:32→20:22)
[2017-11-20] MEDS: ASCORBIC ACID 500 MG TABLET PO SCH (09:56)
[2017-11-20] MEDS: DILTIAZEM HCL CD 120 MG CAP PO SCH (09:56)
[2017-11-20] MEDS: ENOXAPARIN SODIUM 40 MG/0.4 ML SYRINGE SUBCUT SCH (09:56)
[2017-11-20] MEDS: cefTRIAXone Inj 2 GM in Sodium Chloride 0.9% 100 ML IV SCH (12:24)
[2017-11-20 12:46] LABS: BLOOD UREA NITROGEN 16 mg/dL (7-22); BUN/CREATININE RATIO 22.85 (6-20)
--- NOTE | 2017-11-20 13:42 | DI ---
NM Bone/Jnt Image Whole Body,11/20/2017 7:00 AM: Clinical History: Elevated prostate specific antigen. Previous Exam: CT abdomen pelvis performed Radiopharmaceutical: 33.1 mCi of technetium 99m MDP were injected intravenously. Findings: Whole-body images are obtained 3 hours after the administration of radiopharmaceutical. There is linear increased uptake involving the superior endplate of the second lumbar vertebral body. There is no round focal defect within the lumbar thoracic spine. There is some gentle dextroscoliosi s of the thoracic lumbar junction. The urinary bladder is unremarkable. There is vague increased uptake involving the cervical spine most likely representing some degenerati ve facet arthropathy. There is some increased uptake within the shoulders, elbows and wrists. The ankles are unremarkable. Impression: 1. No evidence of metastatic disease. 2. Degenerative changes of the wrists, elbows and shoulders. 3. Mild degenerative changes of the cervical spine.
--- NOTE | 2017-11-20 14:49 | PDOC(PROG) ---
Interval History: Patient is feeling better almost back to baseline in regards to his oxygen requirements he is on 4 L now he is usually on 3 L 24 7 at home for his emphysema he has had 25 pound weight loss over the last 6 months. Objective : Data - Labs CBC and BMP: 11/20/17 04:23 11/20/17 04:23 Objective : Exam - General General Appearance: No Acute Distress, Cooperative - Respiratory Respiratory Exam: Decreased Breath Sounds - Cardiovascular Cardiovascular Exam: RRR, No Murmur, No Clicks, No Gallops, No Rubs, PMI Non- Displaced - GI/Abdominal GI/Abdominal Exam: Normal Bowel Sounds, Non Tender, Non Distended, Soft, No Masses, No Hepatomegaly, No Splenomegaly, No Organomegaly - Extremities Extremities Exam: No Clubbing Present, No Edema Present, No Cyanosis Present Assessment and Plan - Patient Problems (1) Pneumonia Current Visit: Yes Status: Acute Code(s): J18.9 - Pneumonia, unspecified organism Qualifiers: Pneumonia type: due to unspecified organism Laterality: right Lung location: middle lobe of lung Qualified Code(s): J18.1 - Lobar pneumonia, unspecified organism (2) Atrial flutter with rapid ventricular response Current Visit: Yes Status: Acute Code(s): I48.92 - Unspecified atrial flutter (3) Loss of weight Current Visit: Yes Status: Acute Code(s): R63.4 - Abnormal weight loss (4) Elevated PSA Current Visit: Yes Status: Acute Code(s): R97.20 - Elevated prostate specific antigen [PSA] (5) Hypotension Current Visit: Yes Status: Acute Code(s): I95.9 - Hypotension, unspecified Qualifiers: Hypotension type: other hypotension type Qualified Code(s): I95.89 - Other hypotension (6) COPD (chronic obstructive pulmonary disease) Current Visit: Yes Status: Acute Code(s): J44.9 - Chronic obstructive pulmonary disease, unspecified Qualifiers: COPD type: emphysema Emphysema type: panlobular Qualified Code(s): J43.1 - Panlobular emphysema (7) Hypokalemia Current Visit: Yes Status: Acute Code(s): E87.6 - Hypokalemia (8) Severe protein-calorie malnutrition Current Visit: Yes Status: Acute Code(s): E43 - Unspecified severe protein- calorie malnutrition - Assessment / Plan Additional Assessment/Plan Details: #1 pneumonia in the setting of underlying emphysema and COPD continue ceftriaxone and Zithromax I will add steroids 30 mg by mouth daily patient almost at baseline #2 elevated PSA at 67 we need to rule out malignancy bone scan was negative CT scan of the abdomen and pelvis liver lesions radiology thinks these are negative and benign I will go ahead and get an MRI of his head make sure recurrent metastatic disease there ultimately she will need to go see urology for possible biopsies. I discussed this with the patient he is not interested in hospice and wants to pursue diagnosis of his PSA readings. #3 A. fib now rate controlled on Cardizem by mouth 120 he will need anticoagulation he will need Eliquis 2.5 mg by mouth twice a day because his weight is less than 80 kg #4 weight loss could be multifactorial poor nutrition and cachexia from lung disease or metastatic cancer. We will get him appointments and follow-up with cardiology pulmonology and urology. Patient is not interested in assisted placement or doing swing bed physical therapy in hospital he will do outpatient physical therapy and home health I discussed this with both him and his and they are both in agreement and this is what they would like to do his will help him at home as well. This was all discussed in the presence of uzma Gorman
--- NOTE | 2017-11-20 15:39 | DI ---
MRI Brain WWO Contrast,11/20/2017 2:19 PM: Clinical History: Elevated prostate-specific antigen. Previous Exam: Bone scan performed on the same date Findings: Multiplanar MR images are obtained through the brain both before and after the intravenous administra tion of contrast, and demonstrate diffuse age-related volume loss. There are scattered areas of incre ased FLAIR and T2 signal. Images are somewhat limited due to motion artifact. The major vascular flow voids are unremarkable. The intraorbital structures are unremarkable. There is no abnormally restricted diffusion. There is no abnormal enhancement on postcontrast images. The paranasal sinuses are unremarkable. Impression: Diffuse age-related volume loss and small vessel ischemic changes without evidence of neoplasm.
[2017-11-20] MEDS ORDERED: Apixaban Tab 2.5 MG TABLET PO SCH (21:00)
[2017-11-20] MEDS ORDERED: Zolpidem Tab 5 MG TAB PO PRN (21:18)
[2017-11-20] MEDS ORDERED: DILTIAZEM 60 MG TABLET PO ONE (22:44)
--- NOTE | 2017-11-20 23:45 | EKG ---
[address] [place] [address] Measurements Intervals [place] Rate: 103 P: 87 AR: 132 QRS: 73 QRSD: 73 T: 79 QT: 341 QTc: 400 Interpretive Statements SINUS TACHYCARDIA POSSIBLE LEFT ATRIAL ENLARGEMENT [-0.1mV P WAVE IN V1/V2] MINIMAL ST DEPRESSION [0.025+ mV ST DEPRESSION] ABNORMAL RHYTHM ECG Compared to ECG 11/18/2017 14:56:37 Atrial flutter no longer present ST (T wave) deviation still present Electronically Signed On 11-21-17 08:37:12 MST by Yevgeniy Mane MD [email or web address]
[2017-11-20] MEDS ORDERED: fentaNYL Inj 100 MCG/2 ML VIAL IVP PRN (23:47)
[2017-11-20] MEDS ORDERED: FUROSEMIDE 10 MG/1 ML - 4 ML IVP ONE (23:49)
[2017-11-21] MEDS ORDERED: fentaNYL Inj 100 MCG/2 ML VIAL IVP ONE (00:15)
[2017-11-21] MEDS ORDERED: Magnesium Sulfate 2gm (Premix) 2 GM/50 ML BAG IV ONE ×2 (00:26)
[2017-11-21 05:12] LABS: BASOPHILS # (AUTO) 0.01 10*3/UL; BASOPHILS % (AUTO) 0.1 % (0-1); EOSINOPHILS # (AUTO) 0.06 10*3/UL; EOSINOPHILS % (AUTO) 0.4 % (0-8); Hematocrit [HCT] 40.1 % (42.0-52.0); Hemoglobin [HGB] 12.7 g/dL (14.0-18.0); LYMPHOCYTES # (AUTO) 1.18 10*3/uL; MEAN CORPUSCULAR HGB CONC 31.7 g/dL (33-37); MEAN CORPUSCULAR VOLUME 94.8 FL (80-90); MEAN PLATELET VOLUME 10.2 FL (7.4-12.2); MONOCYTES # (AUTO) 0.64 10*3/UL (0.3-0.8); MONOCYTES % (AUTO) 4.7 % (5-15); NEUTROPHILS # (AUTO) 11.46 10*3/UL; NEUTROPHILS % (AUTO) 84.5 % (50-80); RED BLOOD COUNT 4.23 10^6/uL (4.70-6.10)
[2017-11-21 05:16] LABS: BLOOD UREA NITROGEN 17 mg/dL (7-22); BUN/CREATININE RATIO 21.25 (6-20); SERUM ALBUMIN 3.4 g/dL (3.5-4.8)
[2017-11-21] MEDS ORDERED: Heparin Drip 25,000 UNIT/500 ML BAG IV SCH (05:45)
[2017-11-21] MEDS: IPRATROPIUM/ALBUTEROL SULFATE 3 ML NEB NEB SCH ×3 (06:09→14:27)
[2017-11-21] MEDS: Sodium Chloride 0.9% 1,000 ML PRIMARY IV SCH (06:18)
[2017-11-21 06:34] LABS: PLATELET MORPHOLOGY COMMENT NORMAL MORPHOLOGY (NORM); RBC MORPHOLOGY COMMENT NORMAL MORPHOLOGY (NORM); WBC MORPHOLOGY COMMENT NORMAL MORPHOLOGY (NORM)
[2017-11-21] MEDS ORDERED: ASPIRIN 325 MG TABLET PO ONE (07:30)
[2017-11-21] MEDS ORDERED: ATORVASTATIN 40 MG TABLET PO ONE (07:54)
[2017-11-21] MEDS: DILTIAZEM HCL CD 120 MG CAP PO SCH (08:49)
[2017-11-21] MEDS: ASCORBIC ACID 500 MG TABLET PO SCH (08:49)
[2017-11-21] MEDS ORDERED: predniSONE Tab 20 MG TAB PO SCH (09:00)
--- NOTE | 2017-11-21 12:46 | DCSUMMARY ---
Hospitalization Summary Hospital Course: Final Discharge Diagnosis: Current Visit Problems Problem Status Onset Code Pneumonia Acute J18.9 Atrial flutter with rapid ventricular response Acute I48.92 Loss of weight Acute R63.4 Elevated PSA Acute R97.20 Hypotension Acute I95.9 COPD (chronic obstructive pulmonary disease) Acute J44.9 Hypokalemia Acute E87.6 Severe protein-calorie malnutrition Acute E43 Non-STEMI Diagnostic Data, Laboratory Data, and Procedures of Signifigance: CBC and BMP 11/21/17 04:42 11/21/17 04:42 Laboratory Results 11/20/17 11/20/17 11/21/17 Range/Units 04:23 23:35 04:42 WBC 13.57 H (4.8-10.8) 10^3/uL RBC 4.23 L (4.70-6.10) 10^6/uL Hgb 12.7 L (14.0-18.0) g/dL Hct 40.1 L (42.0-52.0) % MCV 94.8 H (80-90) FL MCH 30.0 (27-31) PG MCHC 31.7 L (33-37) g/dL RDW Std Deviation 48.6 (39-50) fL RDW Coeff of [place] 14.4 (11.5-14.5) % Plt Count 247 (140-350) 10*3/uL MPV 10.2 (7.4-12.2) FL Immature Gran % (Auto) 1.6 (0-5) % Neut % (Auto) 84.5 H (50-80) % Lymph % (Auto) 8.7 L (10-50) % [place] % (Auto) 4.7 L (5-15) % Eos % (Auto) 0.4 (0-8) % Baso % (Auto) 0.1 (0-1) % Immature Gran # (Auto) 0.22 10*3/UL Neut # (Auto) 11.46 10*3/UL Lymph # (Auto) 1.18 10*3/uL [place] # (Auto) 0.64 (0.3-0.8) 10*3/UL Eos # (Auto) 0.06 10*3/UL Baso # (Auto) 0.01 10*3/UL WBC Morphology Comment Normal morphology (NORM) Plt Morphology Comment Normal morphology (NORM) RBC Morph Comment Normal morphology (NORM) APTT (22.6-36.2) SECS Sodium 142 (135-145) meq/L Potassium 4.2 (3.8-5.2) meq/L Chloride 112 (98-112) meq/L Carbon Dioxide 23 (23-33) meq/L Anion Gap 7 (5-20) BUN 16 (7-22) mg/dL Creatinine 0.7 (0.70-1.50) mg/dL BUN/Creatinine Ratio 22.85 H (6-20) Glucose 78 (78-110) mg/dL Calculated Osmolality 293.0 H (267-292) mOsm/kg Calcium 8.2 L (8.7-10.7) mg/dL Magnesium 2.0 (1.6-2.4) mg/dL Total Bilirubin (0.3-1.2) mg/dL AST (21-57) IU/L ALT (21-72) IU/L Alkaline Phosphatase (38-126) IU/L Troponin I 0.040 (< 0.040) ng/mL Total Protein (6.1-8.0) g/dL Albumin (3.5-4.8) g/dL Globulin (2.50-4.10) g/dL Albumin/Globulin Ratio (1.3-2.0) mg/g 11/21/17 11/21/17 11/21/17 Range/Units 04:42 04:42 05:58 WBC (4.8-10.8) 10^3/uL RBC (4.70-6.10) 10^6/uL Hgb (14.0-18.0) g/dL Hct (42.0-52.0) % MCV (80-90) FL MCH (27-31) PG MCHC (33-37) g/dL RDW Std Deviation (39-50) fL RDW Coeff of [place] (11.5-14.5) % Plt Count (140-350) 10*3/uL MPV (7.4-12.2) FL Immature Gran % (Auto) (0-5) % Neut % (Auto) (50-80) % Lymph % (Auto) (10-50) % [place] % (Auto) (5-15) % Eos % (Auto) (0-8) % Baso % (Auto) (0-1) % Immature Gran # (Auto) 10*3/UL Neut # (Auto) 10*3/UL Lymph # (Auto) 10*3/uL [place] # (Auto) (0.3-0.8) 10*3/UL Eos # (Auto) 10*3/UL Baso # (Auto) 10*3/UL WBC Morphology Comment (NORM) Plt Morphology Comment (NORM) RBC Morph Comment (NORM) APTT 36.5 H (22.6-36.2) SECS Sodium 140 (135-145) meq/L Potassium 4.4 (3.8-5.2) meq/L Chloride 104 (98-112) meq/L Carbon Dioxide 24 (23-33) meq/L Anion Gap 12 (5-20) BUN 17 (7-22) mg/dL Creatinine 0.8 (0.70-1.50) mg/dL BUN/Creatinine Ratio 21.25 H (6-20) Glucose 69 L (78-110) mg/dL Calculated Osmolality 289.0 (267-292) mOsm/kg Calcium 8.8 (8.7-10.7) mg/dL Magnesium (1.6-2.4) mg/dL Total Bilirubin 0.4 (0.3-1.2) mg/dL AST 49 (21-57) IU/L ALT 46 (21-72) IU/L Alkaline Phosphatase 86 (38-126) IU/L Troponin I 0.293 H* (< 0.040) ng/mL Total Protein 6.2 (6.1-8.0) g/dL Albumin 3.4 L (3.5-4.8) g/dL Globulin 2.8 (2.50-4.10) g/dL Albumin/Globulin Ratio 1.20 L (1.3-2.0) mg/g 11/21/17 Range/Units 11:50 WBC (4.8-10.8) 10^3/uL RBC (4.70-6.10) 10^6/uL Hgb (14.0-18.0) g/dL Hct (42.0-52.0) % MCV (80-90) FL MCH (27-31) PG MCHC (33-37) g/dL RDW Std Deviation (39-50) fL RDW Coeff of [place] (11.5-14.5) % Plt Count (140-350) 10*3/uL MPV (7.4-12.2) FL Immature Gran % (Auto) (0-5) % Neut % (Auto) (50-80) % Lymph % (Auto) (10-50) % [place] % (Auto) (5-15) % Eos % (Auto) (0-8) % Baso % (Auto) (0-1) % Immature Gran # (Auto) 10*3/UL Neut # (Auto) 10*3/UL Lymph # (Auto) 10*3/uL [place] # (Auto) (0.3-0.8) 10*3/UL Eos # (Auto) 10*3/UL Baso # (Auto) 10*3/UL WBC Morphology Comment (NORM) Plt Morphology Comment (NORM) RBC Morph Comment (NORM) APTT 58.6 H (22.6-36.2) SECS Sodium (135-145) meq/L Potassium (3.8-5.2) meq/L Chloride (98-112) meq/L Carbon Dioxide (23-33) meq/L Anion Gap (5-20) BUN (7-22) mg/dL Creatinine (0.70-1.50) mg/dL BUN/Creatinine Ratio (6-20) Glucose (78-110) mg/dL Calculated Osmolality (267-292) mOsm/kg Calcium (8.7-10.7) mg/dL Magnesium (1.6-2.4) mg/dL Total Bilirubin (0.3-1.2) mg/dL AST (21-57) IU/L ALT (21-72) IU/L Alkaline Phosphatase (38-126) IU/L Troponin I (< 0.040) ng/mL Total Protein (6.1-8.0) g/dL Albumin (3.5-4.8) g/dL Globulin (2.50-4.10) g/dL Albumin/Globulin Ratio (1.3-2.0) mg/g Abnormal Lab Results (Last 24 Hours) Range/Units 11/20/17 11/21/17 11/21/17 04:23 04:42 04:42 WBC (4.8-10.8) 10^3/uL 13.57 H RBC (4.70-6.10) 10^6/uL 4.23 L Hgb (14.0-18.0) g/dL 12.7 L Hct (42.0-52.0) % 40.1 L MCV (80-90) FL 94.8 H MCHC (33-37) g/dL 31.7 L Neut % (Auto) (50-80) % 84.5 H Lymph % (Auto) (10-50) % 8.7 L [place] % (Auto) (5-15) % 4.7 L APTT (22.6-36.2) SECS BUN/Creatinine Ratio (6-20) 22.85 H 21.25 H Glucose (78-110) mg/dL 69 L Calculated Osmolality (267-292) mOsm/kg 293.0 H Calcium (8.7-10.7) mg/dL 8.2 L Troponin I (< 0.040) ng/mL Albumin (3.5-4.8) g/dL 3.4 L Albumin/Globulin Ratio (1.3-2.0) mg/g 1.20 L Range/Units 11/21/17 11/21/17 11/21/17 04:42 05:58 11:50 WBC (4.8-10.8) 10^3/uL RBC (4.70-6.10) 10^6/uL Hgb (14.0-18.0) g/dL Hct (42.0-52.0) % MCV (80-90) FL MCHC (33-37) g/dL Neut % (Auto) (50-80) % Lymph % (Auto) (10-50) % [place] % (Auto) (5-15) % APTT (22.6-36.2) SECS 36.5 H 58.6 H BUN/Creatinine Ratio (6-20) Glucose (78-110) mg/dL Calculated Osmolality (267-292) mOsm/kg Calcium (8.7-10.7) mg/dL Troponin I (< 0.040) ng/mL 0.293 H* Albumin (3.5-4.8) g/dL Albumin/Globulin Ratio (1.3-2.0) mg/g History and Physical pertinent to Admission: Course of Hospitalization: Is a very nice 77-year-old gentleman with history of COPD amongst other medical issues who comes into the hospital for shortness of breath and hypoxia was found to have pneumonia on CT scan and is being treated with IV antibiotics. He is also had a 25 [place] weight loss in the last 6 months. He is being treated for the following conditions #1 pneumonia in the setting of underlying emphysema and COPD continue ceftriaxone and Zithromax I will add steroids 30 mg by mouth daily #2 elevated PSA at 67 we need to rule out malignancy bone scan was negative CT scan of the abdomen and pelvis liver lesions radiology thinks these are negative and benign I will go ahead and get an MRI of his head make sure recurrent metastatic disease there ultimately she will need to go see urology for possible biopsies. I discussed this with the patient he is not interested in hospice and wants to pursue diagnosis of his PSA readings. #3 A. fib now rate controlled on Cardizem by mouth 120 he will need anticoagulation he will need Eliquis 2.5 mg by mouth twice a day because his weight is less than 80 kg I also gave him an extra dose of Cardizem 120 since he was tachycardic overnight in the 130s and is tolerating this well with good blood pressures #4 weight loss could be multifactorial poor nutrition and cachexia from lung disease or metastatic cancer. We will get him appointments and follow-up with cardiology pulmonology and urology. #5 non-STEMI elevated troponins with chest pain no acute changes on EKG patient was started on heparin drip he is already on Cardizem received aspirin and statin. Discuss case with Dr. Sarmiento I jocelyne contacted [facility] but there are no beds available for this patient I been calling since this morning it is now 4:25 PM still no beds and the I've called the [facility] since the family's wishes was [place] over [place] I did talk with Dr. Bowles hospitalist and the ER doc . ER physician called me back after talking to Dr. James the offset plate preparation supervisor and accepted the patient in transfer for possible catheter in the ICU direct admit at in [place] patient would like the to pursue workup and wishes to be getting better. All family members agree with transfer as well as nursing #6 Final disposition after discharge from acute care Family the patient has decided to be admitted to this [facility] for strengthening. On the date of discharge, the patient was examined: Gen.: No acute distress, alert, nontoxic patient is able to make his own decisions and I gave me the okay and her friend present in the room Heart: Regular rate and rhythm, no murmurs, clicks, gallops, or rubs Lungs: Clear to auscultation bilaterally, breathing is nonlabored decreased breath sounds bilaterally Abdomen/GI: Normal tones on auscultation, soft, nontender, nondistended Musculoskeletal/extremities: No clubbing, cyanosis, or edema Vitals reviewed and are listed below Assessment and Plan: 1. As per discharge assessments above 2. Disposition: Transferred to [facility] cardiology needs also has elevated PSA of 67 would benefit from urology consult appointments are made for him as an outpatient and pulmonology consult 3. Condition on discharge, stable and improved. 4. Diet: regular diet 5. Activities: resume normal activities 6. Follow-Up: 1. PCP 2. 7. Medications at the Time of Discharge: Home Medications 3 Medication Instructions Recorded Confirmed Type Albuterol Sulfate [Ventolin Hfa] 1 - 2 puff INH Q4H #4 puff 05/17/16 11/18/17 Rx Umeclidinium [place] [Incruse 62.5 mcg INH QD #1 inhaler 03/04/17 11/18/17 Rx Ellipta] fluticasone 200 mcg-vilanterol 25 1 inh INH QDAY #28 ea 08/21/17 11/18/17 Rx mcg/dose powder for inhalation Cyanocobalamin (Vitamin B-12) 1,000 mcg IM MONTHLY 11/18/17 11/18/17 History [B-12 Compliance] O2 3 l INH DAILY 11/18/17 11/18/17 History Active Medications Generic Name Dose Route Start Last Admin Trade Name Freq PRN Reason Stop Dose Admin Acetaminophen 1,000 mg 11/18/17 19:30 11/20/17 10:16 Tylenol PO 1,000 mg Q6H PRN Administration Pain or fever Albuterol Sulfate 2.5 mg 11/18/17 19:30 11/20/17 17:20 Albuterol Neb Soln 0.083% NEB 2.5 mg RTQID PRN Administration Shortness of Breath Albuterol/Ipratropium 3 ml 11/18/17 20:15 11/21/17 10:09 Duoneb Neb Soln NEB 3 ml RTQID EMMA Administration Ascorbic Acid 1,000 mg 11/19/17 09:00 11/21/17 08:49 Vitamin C PO 1,000 mg DAILY EMMA Administration Diltiazem HCl 120 mg 11/19/17 09:00 11/21/17 08:49 Cardizem Cd PO 120 mg DAILY EMMA Administration Fentanyl Citrate 50 mcg 11/20/17 23:47 Sublimaze Inj IVP Q2H PRN Pain Azithromycin 500 mg/ Sodium 250 mls @ 250 mls/hr 11/19/17 13:00 11/20/17 15: 36 Chloride IV 250 mls/hr Q24H EMMA Administration Sodium Chloride 1,000 mls @ 125 mls/hr 11/18/17 19:30 11/21/17 06:18 Normal Saline PRIMARY IV Not Given .Q8H EMMA Sodium Chloride 25 mls @ 200 mls/hr 11/18/17 19:30 Normal Saline 0.9% IV .Post Infusion PRN No Primary IV for Flush ONLY Ceftriaxone Sodium 2 gm/ 100 mls @ 200 mls/hr 11/19/17 12:15 11/20/17 12:24 Sodium Chloride IV 200 mls/hr Q24H EMMA Administration Heparin Sodium/Dextrose 25,000 unit in 500 mls @ 10.647 mls/hr 11/21/17 05:45 11/21/17 07:47 Heparin (Premix) IV 12 unit/kg/hr .Per Protocol EMMA 10.647 mls/hr Protocol Administration 12 UNIT/KG/HR Lidocaine HCl 10 ml 11/18/17 19:30 Xylocaine Uro-Ject 2% TOPICAL ONCE PRN Discomfort catheter insertion Lidocaine HCl 0.5 ml 11/18/17 19:30 Lidocaine Buffered Inj SUBD ONCE PRN IV Starts Non-Formulary Medication 62.5 mcg 11/19/17 10:15 11/21/17 10:12 Umeclidinium [place] [Incruse Ellipta] INH Not Given RTDAILY [facility] Ondansetron HCl 4 mg 11/18/17 19:30 Zofran Inj IVP Q4H PRN NAUSEA / VOMITING Prednisone 40 mg 11/21/17 09:00 11/21/17 08:49 Deltasone Tab PO 40 mg DAILY EMMA Administration Sodium Chloride 5 - 20 ml 11/18/17 19:30 11/20/17 12:30 Saline Flush IVP 10 ml BID PRN Administration Flush Zolpidem Tartrate 5 mg 11/20/17 21:18 Ambien PO BEDTIME PRN Insomnia 8. Time, care, counseling and coordination of care for this discharge is greater than 30 minutes. Exam - Vitals Vital Signs: Vital Signs Temperature 98.3 F Temperature Source Temporal Artery Scan Pulse Rate [Telemetry] 91 Pulse Rate [Apical] 82 Pulse Rate [Pulse Oximeter 95 Right] Pulse Rate 92 Respiratory Rate 24 Blood Pressure [Right Arm] 125/80 Blood Pressure 114/68 Pulse Ox 92 Oxygen Flow Rate 6 Oxygen Delivery Method Oxymask Height 6 ft Weight 97 lb 12.8 oz Patient Problems - Patient Problem List (1) Pneumonia Current Visit: Yes Status: Acute Code(s): J18.9 - Pneumonia, unspecified organism Qualifiers: Pneumonia type: due to unspecified organism Laterality: right Lung location: middle lobe of lung Qualified Code(s): J18.1 - Lobar pneumonia, unspecified organism Category: Medical (2) Atrial flutter with rapid ventricular response Current Visit: Yes Status: Acute Code(s): I48.92 - Unspecified atrial flutter Category: Medical (3) Loss of weight Current Visit: Yes Status: Acute Code(s): R63.4 - Abnormal weight loss Category: Medical (4) Elevated PSA Current Visit: Yes Status: Acute Code(s): R97.20 - Elevated prostate specific antigen [PSA] Category: Medical (5) Hypotension Current Visit: Yes Status: Acute Code(s): I95.9 - Hypotension, unspecified Qualifiers: Hypotension type: other hypotension type Qualified Code(s): I95.89 - Other hypotension Category: Medical (6) COPD (chronic obstructive pulmonary disease) Current Visit: Yes Status: Acute Code(s): J44.9 - Chronic obstructive pulmonary disease, unspecified Qualifiers: COPD type: emphysema Emphysema type: panlobular Qualified Code(s): J43.1 - Panlobular emphysema Category: Medical (7) Hypokalemia Current Visit: Yes Status: Acute Code(s): E87.6 - Hypokalemia Category: Medical (8) Severe protein-calorie malnutrition Current Visit: Yes Status: Acute Code(s): E43 - Unspecified severe protein- calorie malnutrition Category: Medical
[2017-11-21] MEDS: cefTRIAXone Inj 2 GM in Sodium Chloride 0.9% 100 ML IV SCH (13:05)
[2017-11-21 14:20] VITALS: TEMP 97.8
--- NOTE | 2017-11-21 16:32 | PT PM DAY ---
Diagnosis : Pneumonia/Weakness PM - Physical Therapy S: The patient states he is feeling a little better than this morning; however, he still is not feeling great and does not feel up to getting out of bed. The patient did agree to perform exercises in bed. O: The patient performed supine exercises in the form of heel slides, quad sets, glut sets, ankle pumps, and attempted hip abduction. The patient was able to perform the first exercises all x15 bilaterally and hip abduction x5 only on the left. A: The patient did not tolerate exercise well. He was very short of breath and required frequent rest breaks to recover his oxygen. The patient is very weak and would continue to benefit from strengthening. P: Continue seeing patient BID during the week and one time per day over the weekend for transfers, ambulation, and range of motion/strengthening exercises. MTDD
[2017-11-21 17:05] VITALS: BP 140/112; RESP 26; O2SAT 96
== END 2017-11-21 17:47 | disposition short-term general hospital (02) | DRG 193 ==
LOC: ER 09:56 → MED/SURG 11:55 → ICU 15:17 → MED/SURG 19:20
PROVIDERS: ADMIT Family Medicine; ATTEND Family Medicine